=== PATIENT | female | born 1980 | race Asian ===

== ENCOUNTER 2018-11-15 04:24 | Observation (INO) | payer OTHER ==
[2018-11-15] MEDS ORDERED: NS 1,000 ML IV ONE ×3 (04:34→06:59)
--- NOTE | 2018-11-15 04:39 | EDPHY ---
H & P Stated Complaint: UNRESPONSIVE POSS. SZ, STILL SZ WITH EMS. STOPPED BY [facility] EARLIER Time Seen by Provider: 11/15/18 04:37 HPI/ROS: HPI CHIEF COMPLAINT: Possible seizure HISTORY OF PRESENT ILLNESS: 38-year-old female presents emergency room by emergent ambulance for possible recurrent seizures. 911 was called to the patient's private residence by her for what appears to be in unresponsive constitution party. When they arrived there the patient was lying on the ground with her clothes on and head eye rolling movements with the eyes rolling back in her head per EMS. She then had a minute and half of generalized tonic- clonic seizure activity according to EMS. They gave her 5 mg IM Versed. And then subsequently gave another dose of 5 mg IM Versed for a total of 10. Blood glucose was reported to be normal per EMS. Of no police do state that they stopped her while driving with her head lights off around 10:00 p.m. Last night. It is now 4:30 a.m.. She now arrives to ER room 2. She is very sleepy but is able to tell me her name. No seizure activity with stable vital signs. The history comes from EMS this time is very limited. Family not at bedside yet. Past Medical History: Unknown medical history Past Surgical History: No recent surgical history Social History: Unknown if there is alcohol drugs or tobacco tonight. Family History: Unknown ROS REVIEW OF SYSTEMS: Limited due to patient's mental state. Exam Constitutional lethargic, triage nursing summary reviewed, vital signs reviewed Eyes normal conjunctivae and sclera, EOMI, PERRLA. Equal pupils 3 mm minimally reactive to light. HENT normal inspection, atraumatic, moist mucus membranes, no epistaxis, neck supple/ no meningismus, no raccoon eyes. Respiratory clear to auscultation bilaterally, normal breath sounds, no respiratory distress, no wheezing. Cardiovascular rate normal, regular rhythm, no murmur, no edema, distal pulses normal. Gastrointestinal soft, non-tender, no rebound, no guarding, normal bowel sounds, no distension, no pulsatile mass. Genitourinary no CVA tenderness. Musculoskeletal no midline vertebral tenderness, full range of motion, no calf swelling, no tenderness of extremities, no meningismus, good pulses, neurovascularly intact. Skin pink, warm, & dry, no rash, ecchymosis right thigh. Neurologic sleepy. Answers to her name. Psychiatric normal mood/affect. Heme/Lymph/Immune no lymphadenopathy. Differential Diagnosis: Includes but is not limited to in a particular order seizure, generalized tonic-clonic seizure, status, intracranial bleed, drug intoxication, overdose, electrolyte disturbance Medical Decision Making: Plan for this patient IV establishment full bowl turner obtain EKG, blood draw, electrolytes, drug screen, alcohol level, urine , CT scan head and neck, chest x-ray and re-evaluate. Re-evaluation: CT scan head without contrast negative for acute bleed or traumatic injury. Nothing to cause seizure. CT cervical spine without contrast negative for acute traumatic injury. Called to me by Dr. Rubio. Radiology. 0552AM: Patient re-evaluated here. She does answer my questions. She tells me her name. She is sleepy from the versus she received at time she does appear stiff but without any seizure activity. She opens or eye to command. EKG interpretation by me on record in [employer] system. Impression time of EKG 5:51 a.m., sinus rhythm rate of 96 without any signs of acute ischemia. 0602AM: Per the over the Phone: States she has a history of seizures, also has a history of Bipolar d/o, Anxiety, depression. He reports that she has not slept in 3 days. And that she was acting erratic this evening. reports she had a seizure tonight at home, he reports it lasted a few minutes. Phone #: [phone] of . Shiquan. Tavarez. Patient gets most healthcare at [facility]. 0620AM: Patient does not have any seizure medication was brought into the emergency room. Will plan on 1 g of Keppra. Also 1 mg Ativan. Will admit to the hospitalist service for further observation for further seizures. 6:20 a.m. she is able to tell me her name. Plan for admission. 0716AM: Patient was having whole body jerking that did not appear to be seizure activity she was able to speak to me and answer questions during this activity. Telling me her son's name and spelling it out. This does not appear to be typical seizure activity. Plan for hospital admission IV Keppra as been given. Plan for admission observation. Dr. Gomez accepts. Chest x-ray reviewed poor inspiratory effort this was performed when she initially arrived to the emergency room and received 10 mg IM Versed. Patient will need repeat chest x-ray to the poor inspiratory effort and what appears to be a wide mediastinum on the x-ray most likely due to poor inspiratory effort. Hospitalist service Dr. Funez notified about this. Source: Patient, Police, EMS - Personal History Current Tetanus/Diphtheria Vaccine: Unsure Current Tetanus Diphtheria and Acellular Pertussis (TDAP): Unsure - Medical/Surgical History Hx Asthma: No Hx Chronic Respiratory Disease: No Hx Diabetes: No Hx Cardiac Disease: No Hx Renal Disease: No Hx Cirrhosis: No Hx Alcoholism: No Hx HIV/AIDS: No Hx Splenectomy or Spleen Trauma: No Other PMH: SZ PER Constitutional: Initial Vital Signs Temperature (C) 37.1 C 11/15/18 04:25 Heart Rate 74 11/15/18 04:25 Respiratory Rate 18 11/15/18 04:25 Blood Pressure 96/53 L 11/15/18 04:25 O2 Sat (%) 98 11/15/18 04:25 O2 Delivery Mode Nasal Cannula O2 (L/minute) 2 Allergies/Adverse Reactions: No Known Allergies Allergy (Unverified 11/15/18 06:01) Home Medications: Medication Instructions Recorded ARIPiprazole [Abilify 10 mg (*)] 10 mg PO DAILY 11/15/18 Benztropine Mesylate [Cogentin 1 mg PO BID 11/15/18 (RX)] LORazepam [Ativan (*)] 1 mg PO HS PRN 11/15/18 Medical Decision Making - Data Points Laboratory Results: Laboratory Results 11/15/18 04:30 11/15/18 04:30 Medications Given: Benztropine Mesylate (Cogentin) 1 mg PO BID [facility] Stop: 05/14/19 20:59 Last Admin: 11/15/18 21:32 Dose: Not Given Discontinued Medications Haloperidol Lactate (Haldol Injection) 5 mg IM EDNOW ONE Stop: 11/15/18 06:57 Last Admin: 11/15/18 06:57 Dose: 5 mg Sodium Chloride (Ns) 1,000 mls @ 0 mls/hr IV EDNOW ONE; Wide Open PRN Reason: Protocol Stop: 11/15/18 04:35 Last Admin: 11/15/18 05:14 Dose: 1,000 mls Sodium Chloride (Ns) 1,000 mls @ 0 mls/hr IV ONCE ONE PRN Reason: Wide Open Stop: 11/15/18 05:44 Last Admin: 11/15/18 05:47 Dose: 1,000 mls Levetiracetam (Keppra (Premix)) 100 mls @ 400 mls/hr IV EDNOW ONE Stop: 11/15/18 06:06 Last Admin: 11/15/18 06:28 Dose: 100 mls Sodium Chloride (Ns) 1,000 mls @ 0 mls/hr IV EDNOW ONE; KVO PRN Reason: Protocol Stop: 11/15/18 07:00 Last Admin: 11/15/18 07:01 Dose: 1,000 mls Lorazepam (Ativan Injection) 1 mg IVP EDNOW ONE Stop: 11/15/18 06:20 Last Admin: 11/15/18 06:30 Dose: 1 mg Lorazepam (Ativan Injection) 2 mg IVP ONCE ONE Stop: 11/15/18 06:56 Last Admin: 11/15/18 06:57 Dose: 2 mg Departure - Departure Disposition: [facility] Acute Clinical Impression: Seizure Condition: Fair
[2018-11-15 04:47] LABS: PLATELET COUNT 290 10^3/uL (150-400)
[2018-11-15 04:52] LABS: CREATINE KINASE 280 IU/L (0-156)
[2018-11-15 05:22] LABS: INR 1.06 (0.83-1.16)
[2018-11-15] MEDS ORDERED: levETIRAcetam 1000MG/NACL 100 ML IV ONE (05:52)
[2018-11-15] MEDS ORDERED: LORazepam 2 MG/ML INJ IVP ONE ×2 (06:19→06:55)
[2018-11-15] MEDS ORDERED: LORazepam 2 MG/ML INJ ONE (06:47)
[2018-11-15] MEDS ORDERED: HALOPERIDOL LACT 5 MG/ML INJ ONE (06:52)
[2018-11-15] MEDS ORDERED: ACETAMINOPHEN 325 MG TAB PO PRN (06:55)
[2018-11-15] MEDS ORDERED: ONDANSETRON DISINTEGRATING 4 MG TAB PO PRN (06:55)
[2018-11-15] MEDS ORDERED: ONDANSETRON 4 MG/2 ML VIAL IVP PRN (06:55)
[2018-11-15] MEDS ORDERED: LORazepam 2 MG/ML INJ IVP PRN (06:56)
[2018-11-15] MEDS ORDERED: HALOPERIDOL LACT 5 MG/ML INJ IM ONE (06:56)
--- NOTE | 2018-11-15 07:47 | GHP ---
DATE OF ADMISSION: 11/15/2018 CHIEF COMPLAINT: Possible seizure. HISTORY OF PRESENT ILLNESS: A 38-year-old female presents to ER by EMS for questional seizure. 911 was called by her for unresponsiveness. When they arrived, they noted the patient was lying on the ground with eyes rolling back in her head with a minute and a half of general tonic-clonic seizure activity. She dosed a 10mg IV Versed. Blood glucose was normal. History is obtained from Dr. Trotter's note since not conversive during my interview. When she arrived, she was sleepy, but could state her name. She said was scared, mumbling something about her . During my interview and exam and is stiffening her limbs and rocking her body back and forth with clenched hands. She is moaning, "he loves me." Dosed Ativan 3mg IV Ativan and Haldol with improved symptoms. reports that she does have similar episodes once a year. Per review of JAVIER has been admitted to [facility] in November/September of 2017 for diagnosis bipolar 1 disorder with psychotic features and was hospitalized at [facility]. Dr. Trotter spoke with the , but he refused to come to the hospital. PAST MEDICAL HISTORY: Bipolar disorder. PAST SURGICAL HISTORY: Cannot obtain. SOCIAL HISTORY: She lives with her , who refused to come in to the ER. FAMILY HISTORY: Unknown. ALLERGIES: No known drug allergies. HOME MEDICATIONS: Ativan, Cogentin, Abilify 15 mg. PHYSICAL EXAMINATION: VITAL SIGNS: Temperature 37.8, blood pressure 127/81, heart rate is 112 to 140s, respirations 18, 100% on 2 L. GENERAL: Lying in bed , propelling her body up and down, moaning. Will not answer questions. CV: Tachy, regular. LUNGS: Clear anteriorly. ABDOMEN: Scabbed over lesion over right abdomen. GI: Soft, nondistended. No grimace with palpation. MUSCULOSKELETAL: Large hematoma, right thigh. NEURO: Not participating in exam. PSYCH: Nonverbal. LABS: WBC 12, hemoglobin 12, hematocrit 37, platelets 290; coags within normal. Sodium 136, potassium 3.8, chloride 104, carbon dioxide 16, anion gap 16, creatinine 0.7, glucose 175. CK is 280. Troponin is negative. LFTs within normal. Lipase normal. UTOX negative. Negative salicylate. Negative alcohol and acetaminophen. CT head reviewed: No overt bleed. Chest x-ray personally reviewed: No effusion or opacity. ASSESSMENT/PLAN: 1. Questionable seizure: symptoms in ER not consistent with seizure. CT head was negative, was loaded with Keppra. Suspect psychiatric. Previously hospitalized at [facility]. She was loaded with Keppra in the emergency room. Needs psychiatric evaluation. 2. Agitation: afebrile. No infectious symptoms. Chest x-ray negative for PNA. Check UA. Considered NMS, but not initially rigid, afebrile and normotensive. CTH negative. 3. Metabolic acidosis: seizure vs starvation ketoacidosis. Hydrate and repeat. 4. Mediastinal widening: per Rads may be poor inspiratory effort. Repeat CXR when more alert 5. Deep venous thrombosis prophylaxis: Low risk. DISPOSITION: Warrants observation admission for control of agitation and psychiatric evaluation. /[id number]/MODL MTDD
--- NOTE | 2018-11-15 07:48 | CPEKG ---
Test Reason : OPEN Blood Pressure : / mmHG Vent. Rate : 096 BPM Atrial Rate : 093 BPM P-R Int : 159 ms QRS Dur : 079 ms QT Int : 368 ms P-R-T Axes : 071 056 022 degrees QTc Int : 465 ms Sinus rhythm Abnormal R-wave progression, early transition Confirmed by Graham Trotter ([id number]) on 11/15/2018 7:47:13 AM Referred By: Confirmed By:Graham Trotter
--- NOTE | 2018-11-15 15:46 | HOSPPROG ---
Hospitalist Progress Note Assessment/Plan: Pt with h/o bipolar disorder admitted this am with concern for seizure. Chart reviewed, pt seen. No ongoing seizure activity. It's not clear she had a true seizure. Suspect psych component to her presentation. Possible seizure - hold further keppra, prn ativan if witnessed seizure activity. No fevers or rigidity to suggest NMS. Bipolar d/o - cont abilify and cogentin. Will likely medically clear in am and request TLC / psych eval. Widened mediastinum - appearance likely due to poor inspiratory effort. Leukocytosis - suspect stress response, no e/o infection, monitor for s/sx's of infection and repeat in am Metabolic acidosis - a seizure could cause this vs starvation ketosis, now resolved. Follow. Full code Subjective: Pt resting comfortably. No recurrent seizures. Objective: Vital Signs Temp Pulse Resp BP Pulse Ox 37.8 C 72 15 96/57 L 98 11/15/18 14:26 11/15/18 14:26 11/15/18 14:26 11/15/18 14:26 11/15/18 14:26 Laboratory Results 11/15/18 12:43 11/14/18 11/15/18 11/16/18 05:59 05:59 05:59 Intake Total 3000 Balance 3000 PT 14.0 SEC (12.0-15.0) 11/15/18 04:30 INR 1.06 (0.83-1.16) 11/15/18 04:30 - Physical Exam Constitutional: no apparent distress Cardiovascular: regular rate and rhythym Respiratory: no respiratory distress Skin: warm Musculoskeletal: other (no rigidity) ICD10 Worksheet Patient Problems: Problems Problem Status Onset Seizure Acute
[2018-11-15] MEDS: BENZTROPINE MESYLATE 1 MG TAB PO SCH (21:32)
[2018-11-16 05:29] LABS: PLATELET COUNT 226 10^3/uL (150-400)
[2018-11-16 05:39] LABS: CREATINE KINASE 1504 IU/L (0-156)
[2018-11-16] MEDS ORDERED: NS 1,000 ML IV SCH (07:30)
[2018-11-16] MEDS ORDERED: ARIPiprazole 10 MG TAB PO SCH (09:00)
[2018-11-16] MEDS: BENZTROPINE MESYLATE 1 MG TAB PO SCH (09:55)
--- NOTE | 2018-11-16 14:11 | ASMTCMCOM ---
CM Note CM Note Notes: CM reviewed pt's chart for d/c planning. Pt is a 38 y/o female, with a bipolar 1 diagnosis, who presented to the ED for possible recurrent seizures. During her interview with the hospitalist, stiffening her limbs and rocking her body back and forth with clenched hands. She was moaning " he loves me". Ativan and Haldol improved symptoms. reports that she does have similar episodes once a year. She was admitted to [facility] in 2017 for bipolar disorder with psychotic feature. The phsycian has ordered a TLC eval and the has left a note in her chart asking for her to be admitted to [facility]. CM will follow for needs. D/C Plan: TBD Date Signed: 11/16/2018 02:11 PM Electronically Signed By:Shelly Logan
[2018-11-16] MEDS ORDERED: EPINEPHrine 1 MG/10 ML SYR IVP ONE (15:00)
[2018-11-16 15:50] VITALS: BP 116/85
--- NOTE | 2018-11-16 16:20 | ASDISCHSUM ---
Discharge Information Plan Status:Home with No Needs Medically Cleared to Leave: Discharge Date: CM D/C Disposition:Home, Routine, Self-Care ADT D/C Disposition: Projected Discharge Date: Transportation at D/C:Family Discharge Delay Reason: Follow-Up Date: Discharge Slot: Final Diagnosis: Placement Information Patient Contact Information Contact Name:ELIZA Relationship: Address:[address] Phone: City:[place] [facility] Phone: State/Zip Code:[place] [address] Email: Financial Information Financial Class:Self-Pay Primary Plan Desc:SELF PAY Primary Plan Number: Secondary Plan Desc: Secondary Plan Number: Assessment Information LACE LACE Length of stay for Answers: 1 day current admission Acuity / Level of Answers: No Care: Did the patient have an inpatient admission? Comorbidities - select Answers: Other Notes: Hx of seizures all that apply # of Emergency department Answers: 1-2 visits in the last 6 months Social determinants Answers: Mental health diagnosis (anxiety, depression, pers onality disorders, etc.) Score: 6 Date Signed: 11/16/2018 04:19 PM Electronically Signed By:Shelly Logan [facility] Progress Note CM Note CM Note Notes: CM reviewed pt's chart for d/c planning. Pt is a 38 y/o female, with a bipolar 1 diagnosis, who presented to the ED for possible recurrent seizures. During her interview with the hospitalist, stiffening her limbs and rocking her body back and forth with clenched hands. She was moaning " he loves me". Ativan and Haldol improved symptoms. reports that she does have similar episodes once a year. She was admitted to [facility] in 2017 for bipolar disorder with psychotic feature. The phsycian has ordered a TLC eval and the has left a note in her chart asking for her to be admitted to [facility]. CM will follow for needs. D/C Plan: TBD Date Signed: 11/16/2018 02:11 PM Electronically Signed By:Shelly Logan Intervention Information
[2018-11-16] MEDS ORDERED: MELATONIN 3 MG TAB PO SCH (21:00)
== END 2018-11-16 20:39 | disposition home or self-care (01) ==
LOC: EDBD → EDUNIT# → F3N 14:20 → UNDODISOB 11-16 20:04
PROVIDERS: ADMIT Internal Medicine; ATTEND Internal Medicine
DX: G40.409 Other generalized epilepsy and epileptic syndromes, not intractable, without status epilepticus (principal); F31.9 Bipolar disorder, unspecified; E87.2 Acidosis
CPT/HCPCS: 70450; 71045; 72125; 93005; 96361; 96365; 96372; 96375; 97161; 99285; G0378; 80305; G0480; J1630; J1953; J2060